=== PATIENT | male | born 1980 | race Caucasian/White ===

== ENCOUNTER 2017-05-28 20:36 | Emergency (ER) | payer BC, SELFPAY ==
[2017-05-28] VITALS (8 sets, daily range): BP systolic 128–135; BP diastolic 78–95; PULSE 85–107; RESP 10–28; TEMP 36.5; O2SAT 90–95; BMI 25.5
[2017-05-28] MEDS: Ipratropium/Albuterol Sulfate 3 ML AMPUL.NEB INHALATION ×2 (21:07→22:51)
[2017-05-28] MEDS: Albuterol 2.5 MG/3 ML VIAL.NEB. INHALATION ×3 (21:07→22:51)
--- NOTE | 2017-05-28 21:40 | RAD_ITS ---
STUDY: X-RAY CHEST REASON FOR EXAM: Male, 37 years old. Increased shortness of breath for several hours with history of asthma. TECHNIQUE: PA and lateral views of the chest. COMPARISON: None. FINDINGS: The lungs are clear and expanded. There is no demonstrated pleural abnormality. Normal size heart. Normal mediastinum and jean pierre. Normal visualized pulmonary arteries. Normal visualized aortic arch and descending thoracic aorta. Normal visualized thoracic spine. Normal visualized ribs, clavicles, and shoulders. There is no demonstrated abnormality of the visualized soft tissue structures of the upper abdomen. RAD/Chest PA and Lateral IMPRESSION: No evidence of focal airspace disease. Electronically Signed: Sung Rodrigues DO at 22:06 EDT , Service support ,
--- NOTE | 2017-05-28 22:42 | ED.DCSUM_ITS ---
- ER Visit Summary Date of Service: 05/28/17 Chief Complaint: Shortness of breath History of Present Illness: The patient is a 37 M with a history of asthma. Patient reports waking this morning with cold symptoms and has wheezing and shortness of breath worsened tonight. His albuterol MDI was not helping at home. He denies fever. He denies chest pain. He does not recall when he was last on oral steroids. Physical Examination: Vital signs are significant for respiratory rate of 28 and a pulse ox of 90% on room air on arrival. At the time of my exam his oxygen saturation is 95% on 2 L nasal cannula. Patient sitting upright in bed no acute distress. He speaking approximately 3- 4 word sentences. Head neck examination is unremarkable. Heart is regular rate and rhythm. Lung sounds are with tight inspiratory and expiratory wheezes throughout. Abdomen is soft nontender. Lower extremity examination was no calf tenderness or edema. Test Results: Two-view chest x-ray reveals no focal airspace disease. Emergency Department Course and Treatment: Patient was given a cycle of breathing treatments along with oral prednisone. On repeat evaluation he still has expiratory wheezes, but improved air movement throughout. He is able to speak full sentences and respiratory rate is now 10. His oxygen saturation is 93% on room air. Patient is given additional breathing treatments. After an additional DuoNeb treatment and albuterol, patient's lungs have significantly improved air movement. There is rare expiratory wheeze currently. Patient feels significantly improved over presentation. He will be given prednisone for home and will continue to use albuterol MDI. He is to return for worsening symptoms. Treatment Plan: [] Disposition: Discharge Impression: Viral URI with asthma exacerbation This note was generated with [employer] dictation software. It may contain incorrect words, spelling, and punctuation that were not noted in review of the chart prior to signing ED Disposition - Plan for ED Patient: Chief Complaint: Shortness of Breath Referrals: Jv Christopher MD [Primary Care Provider] -
--- NOTE | 2017-05-28 23:29 | ED.DEP ---
ED Disposition - Plan for ED Patient: Disposition: Home or Assisted Living Chief Complaint: Shortness of Breath Instructions: ED Reactive Airway Disease Prescriptions: Prednisone 10 mg PO UD #33 tablet Referrals: Jv Christopher MD [Primary Care Provider] - 3-5 Days if not improving
== END 2017-05-28 23:35 | disposition home or self-care (01) ==
PROVIDERS: Emergency Provider Emergency Medicine; Family Provider Family Medicine; PCP Family Medicine
DX: J45.901 Unspecified asthma with (acute) exacerbation (principal); J06.9 Acute upper respiratory infection, unspecified; Z87.891 Personal history of nicotine dependence; Z79.51 Long term (current) use of inhaled steroids; Z79.899 Other long term (current) drug therapy
CPT/HCPCS: 71046; 94640; 99283

== ENCOUNTER 2018-03-25 12:47 | Day surgery (SDC) | payer BC, SELFPAY ==
[2018-03-25] VITALS (9 sets, daily range): BP systolic 118–143; BP diastolic 79–102; PULSE 65–90; RESP 16–18; TEMP 36.2–37.5; O2SAT 92–97; BMI 27.6
--- NOTE | 2018-03-25 13:02 | EKG12_ITS ---
Test Reason : PRE-OP Blood Pressure : / mmHG Vent. Rate : 075 BPM Atrial Rate : 075 BPM P-R Int : 148 ms QRS Dur : 088 ms QT Int : 396 ms P-R-T Axes : 057 -09 020 degrees QTc Int : 442 ms Normal sinus rhythm Poor R wave progression Confirmed by WILLIAM MEJIA, ELIZABETH ([id number]), editor in chief newspaper LIZANDRO POLO ([id number] on 03/27/2018 11:16:26 AM Referred By: Jarek Quiroga Confirmed By:ELIZABETH THOMAS MD
[2018-03-25 13:45] LABS: Hematocrit 49.2 % (40-54); Hemoglobin 16.4 g/dl (13.0-16.5); Mean Corp Hgb Conc 33.3 g/gl (32-36); Mean Corpuscular Hgb 30.1 pg (27.0-32.0); Mean Corpuscular Volume 90.3 fL (80-94); Mean Platelet Vol. 9.8 fl (6.2-12.0); Platelet Count 371 K/mm3 (150-450); RBC Distribution Width CV 13.1 % (11.6-14.6); RBC Distribution Width SD 42.5 fl (35.1-43.9); Red Blood Count 5.45 M/mm3 (4.6-6.2); White Blood Count 14.5 K/mm3 (4.4-11.0)
[2018-03-25 13:47] LABS: Scan Indicated on CBC? Y/N NO
--- NOTE | 2018-03-25 14:25 | ETH_PTH ---
PATIENT: ANTHONY BYRD [place] [facility] [id number] AGE/SX: 38/M ROOM: RE03/25/[address]: Dr. Victor M Quiroga MD : [id number] BED: DIS: 03/25/2018 SPEC #: [id number] RECD: 03/26/18 07:45 STATUS: PRASANNA RERand #: [id number] ARI: 03/25/18 14:[address]: Victor M Quiroga DEPT: SURGICAL PATHOLOGY RECD BY: Danilo Larson ENTERED: 03/26/18 10:12 SP TYPE: ETH TISS OTHR DR: Dr. Jv Christopher MD Tissues: A - Ethmoid sinus, NOS B - Ethmoid sinus, NOS Procedures: PAS Fungus (control) Decalcification bone/plaque Special Stain Group I Surgery Specimen Level III HEADER OPERATION: Functional endoscopic sinus surgery with Navigation, septoplasty PRE-OP DIAGNOSIS: Chronic pansinusitis TISSUE SUBMITTED: A - Contents of left maxillary sinus, B - Contents of right maxillary sinus MICROSCOPIC DIAGNOSIS A. Left axillary sinus contents, excision: Consistent with chronic sinusitis. Fragments of benign sinonasal polyp. Fragments of bone with no pathologic change. Negative for fungal organisms. B. Right axillary sinus contents, excision: Consistent with chronic sinusitis. Fragments of benign sinonasal polyp. Fragments of bone with no pathologic change. Negative for fungal organisms. AM:marysol 03/31/18 COMMENT A & B. PAS stain with matched control supports the above diagnosis. MICROSCOPIC DESCRIPTION Slides are reviewed. GROSS DESCRIPTION A - Received in fixative is one container labeled with the patient's name and designated contents of left maxillary sinus. The specimen consists of multiple fragments of hemorrhagic frothy tissue mixed with fragments of bone that in aggregate measure 5 x 5 x 2 cm. Lawnmower Mechanic tissue is submitted in three cassettes after decalcification. B - Received in fixative is one container labeled with the patient's name and designated contents of right maxillary sinus. The specimen consists of multiple fragments of hemorrhagic frothy tissue mixed with fragments of bone that in aggregate measure 6 x 4 x 2 cm. Lawnmower Mechanic tissue is submitted in three cassettes after decalcification. / SHIMON:marysol 03/26/18 TC:3 CPT: 82972 x2, 60739 x2, 30979 x2
--- NOTE | 2018-03-25 15:03 | DCINST_ITS ---
You will use the following diet at home:: No restrictions Your food should be the consistency of: Regular Discharge Activity: May not drive while taking narcotic pain medications. Call your doctor if your incision/area has: Increased Pain/ Swelling Additional Dressing/Incision Instructions:: irrigate both nostrils 5-6 times / day with saline spray Allergies/Adverse Reactions: Allergies Sulfa (Sulfonamide Antibiotics) Allergy (Verified 03/24/18 10:26) Other sulfamethoxazole [From Septra] Allergy (Verified 03/25/18 13:10) Other trimethoprim [From Septra] Allergy (Verified 03/25/18 13:10) Other Medications to take at Discharge Fenofibrate [Lofibra] 160 mg PO DAILY 02/28/16 Albuterol Sulfate [Ventolin Hfa] 2 puff INHALATION 4X/DAY PRN PRN 05/28/17 Beclomethasone Diprop Inhaler [Qvar 80 Mcg Inhaler] 1 puff INHALATION BID 05/28/17 Citalopram [Celexa] 10 mg PO DAILY 05/28/17 Prednisone 10 mg PO UD #33 tablet 05/28/17 Lorazepam [Ativan] 0.5 mg PO DAILY PRN PRN 03/24/18 Ranitidine [Zantac] 150 mg PO QHS 03/24/18 MethylPREDNISolone DosePak [Medrol DosePak] 4 mg PO UD #1 box 03/25/18 Oxycodone HCl/Acetaminophen [Percocet 5/325] 1 tab PO Q6H PRN PRN 4 Days #15 tab 03/25/18 levoFLOXacin tablet [Levaquin tablet] 750 mg PO DAILY #7 tab 03/25/18 The following prescriptions were given: Oxycodone HCl/Acetaminophen [Percocet 5/325] 1 tab PO Q6H PRN PRN 4 Days #15 tab PRN Reason: Pain levoFLOXacin tablet [Levaquin tablet] 750 mg PO DAILY #7 tab MethylPREDNISolone DosePak [Medrol DosePak] 4 mg PO UD #1 box Primary Care Physician: Jv Christopher MD [Primary Care Provider] - Test Results: Test results from this visit will be discussed in further detail at your follow- up appointment, if applicable. Please Follow Up With: Jarek Quiroga MD When: 1 week
--- NOTE | 2018-03-25 15:04 | OP.PCM_ITS ---
Problem List (1) Chronic pansinusitis Status: Chronic Report of Operation Date of Procedure: 03/25/18 Pre-Operative Diagnosis: 1. chronic pansinusitis. 2. sinonasal polyposis. 3. nasal congestion. 4. nasal septal deviation. 5. nasal turbinate hypertrophy Post-Operative Diagnosis: 1. chronic pansinusitis. 2. sinonasal polyposis. 3. nasal congestion. 4. nasal septal deviation. 5. nasal turbinate hypertrophy Surgery/Procedure Performed:: 1. endoscopic maxillary antrostomy with removal of contents, right and left. 2. endoscopic total ethmoidectomy, right and left. 3. endoscopic frontal sinusotomy with removal of contents, right and left. 4. endoscopic sphenoidotomy with removal of contents, right and left. 5. endoscopic extensive polypectomy. 6. septoplasty. 7. submucous resection inferior turbinates Type of Anesthesia:: General Description of Procedure: on the day of the procedure after appropriate informed consent was obtained, the patient was brought to the operating room and placed in supine position on the operating table. he was placed under general endotracheal anesthesia by the anesthesiologist. the endotracheal tube was secured. the nasal septum and turbinates were injected with lidocaine/epinephrine. a marginal incision was made on the left with a #15 blade. submucoperichondrial planes were developed on the right and left with a santosh elevator posteriorly to the bony cartilaginous junction and inferiorly to the maxillary crest. an L- strut was preserved and a D knife was used to remove the remainder of the septum . deviated portions of the vomer were removed with a pricilla croft. the marginal incision was closed with 4-0 chromic and multiple quilting sutures were used to reapproximate the submucoperichondrial flaps. on the left, a 15 blade was used to make an incision in the head of the inferior turbinate. this was dissected submucosally with a santosh elevator, reduced using suction electrocautery and outfractured using a boies elevator. on the right, a 15 blade was used to make an incision in the head of the inferior turbinate. this was dissected submucosally with a santosh elevator, reduced u sing suction electrocautery and outfractured using a boies elevator. the bilateral nasal cavities were decongested with oxymetazoline-soaked pledgets. the superior attachment of the right and left middle turbinate was injected with lidocaine/epinephrine. on the left, a large amount of polyps were removed using the kailey microdebrider. an antrostomy/uncinectomy was performed using a combination of a santosh elevator and a blakesley. a back biter was used to widen the antrostomy. a large amount of fungus/pus was evacuated. the ethmoid bulla was entered bluntly with the suction and a total ethmoidectomy was performed with a curette and an upgoing blakesley. this was taken superiorly to the skull base and laterally to the lamina. numerous polyps were removed. a stankewicz maneuver was performed and no defect was seen. the natural sphenoid os was opened with the microdebrider and a large amount of pus was evacuated. the acclarent balloon sinuplasty system was advanced into the frontal recess and frontal transillumination was seen. the balloon was advanced and dilated. the area was irrigated and pledgets were replaced. hemostasis was achieved. on the right, a large amount of polyps were removed using the kailey microdebrider. an antrostomy/uncinectomy was performed using a combination of a santosh elevator and a blakesley. a back biter was used to widen the antrostomy. a large amount of fungus/pus was evacuated. the ethmoid bulla was entered bluntly with the suction and a total ethmoidectomy was performed with a curette and an upgoing blakesley. this was taken superiorly to the skull base and laterally to the lamina. numerous polyps were removed. a stankewicz maneuver was performed and no defect was seen. the natural sphenoid os was opened with the microdebrider and a large amount of pus was evacuated. the acclarent balloon sinuplasty system was advanced into the frontal recess and frontal transillumination was seen. the balloon was advanced and dilated. the area was irrigated and pledgets were replaced. hemostasis was achieved. propel stents were placed bilaterally and bocanegra splints were sutured into place. an orogastric tube was advanced and gastric/pharyngeal contents were evacuated. the patient was brought out of anesthesia, extubated and transferred to the pacu in stable condition.
[2018-03-25] MEDS: Oxymetazoline 0.05% 1 SPRAY SPRAY.BTL 15 SPRAY ×3 (15:30→16:49)
[2018-03-25] MEDS: Mupirocin Ointment 22gm Tube 1 APPLIC (16:54)
[2018-03-25] MEDS: HYDROcodone Bitartrate/Apap 5/325 Tablet PO (19:14)
== END 2018-03-25 19:42 | disposition home or self-care (01) ==
LOC: SDC 12:50 → AC 12:50
PROVIDERS: Anesthesiology; Family Provider Family Medicine; PCP Family Medicine; Referring Provider Otolaryngology; Visit Provider Otolaryngology
PROC: (CPT 30140; principal; 2018-03-25 14:10)
DX: J33.0 Polyp of nasal cavity (principal); J32.4 Chronic pansinusitis; K21.9 Gastro-esophageal reflux disease without esophagitis; E78.00 Pure hypercholesterolemia, unspecified; F41.9 Anxiety disorder, unspecified; F32.9 Major depressive disorder, single episode, unspecified; J45.909 Unspecified asthma, uncomplicated; G47.30 Sleep apnea, unspecified; Z87.891 Personal history of nicotine dependence; Z79.52 Long term (current) use of systemic steroids; Z79.51 Long term (current) use of inhaled steroids; Z79.899 Other long term (current) drug therapy
CPT/HCPCS: 30140; 30520; 31253; 31259; 31267; 36415; 85027; 88304; 88305; 88311; 88312; 93005; J7120; J2405

== ENCOUNTER → 2018-08-27 | Outpatient (CLI) | payer BC, SELFPAY ==
[2018-03-25 13:12] VITALS: BMI 27.6
== END | disposition home or self-care (01) ==
PROVIDERS: Family Provider Family Medicine; PCP Family Medicine; Referring Provider Otolaryngology; Visit Provider Otolaryngology
DX: J32.9 Chronic sinusitis, unspecified (principal)
CPT/HCPCS: 87070; 87077; 87186; 87205

== ENCOUNTER → 2018-09-25 | Outpatient (CLI) | payer BC, SELFPAY ==
[2018-03-25 13:12] VITALS: BMI 27.6
== END | disposition home or self-care (01) ==
LOC: LABSPEC 15:43
PROVIDERS: Family Provider Family Medicine; PCP Family Medicine; Referring Provider Otolaryngology; Visit Provider Otolaryngology
DX: J32.9 Chronic sinusitis, unspecified (principal)
CPT/HCPCS: 87070; 87077; 87186; 87205

== ENCOUNTER 2019-01-12 15:46 | Emergency (ER) | payer BC, SELFPAY ==
[2018-03-25 13:12] VITALS: BMI 27.6
[2019-01-12 15:47] VITALS: BP 161/89; PULSE 73; RESP 15; TEMP 36.6; O2SAT 96; BMI 27.2
--- NOTE | 2019-01-12 16:06 | ED.VISSUMM ---
- ER Visit Summary Date of Service: 01/12/19 Chief Complaint: [Back pain] History of Present Illness: The patient is a 38 M [presents to the emergency department with complaint of back pain that started yesterday morning when he woke up. Patient states that he was fine when he went to bed the night before. Patient states pains in his low back and at times will radiate into his right buttock. Pain seems to make it worse. Patient is tried Tylenol and ibuprofen at home without much relief. Patient's tried heat to the area. Patient has had some back pain in the past but never lasted this long. Patient denies any injury to his back. He denies any fever. He denies urinary symptoms. He does have a history of kidney stones but states this pain is completely different. Patient drove himself to the emergency department. Patient denies any radiation of pain into his legs. He denies any paresthesias. He denies weakness in extremities. He denies change in bowel or bladder function.] Physical Examination: [HEENT-PERRLA, EOMI. Cranial nerves II through XII grossly intact. TMs clear. Mucous membranes moist. No adenopathy. Cardiovascular-regular rate and rhythm without murmur or ectopy Lungs-clear to auscultation, chest wall stable without crepitus or subcu emphysema Abdomen-normoactive bowel sounds, soft, nontender, no rebound or rigidity, no peritoneal signs. Back exam-patient has no tenderness over the thoracic or lumbar spine. Patient has no real tenderness over the paraspinal musculature. Patient has negative straight leg raises. Deep tendon reflexes are plus 2 out of 4 bilaterally at the patella and Achilles. Patient has normal 5 extension bilaterally. Patient has normal sensation to light touch. Extremities-intact ?4, normal range of motion, normal pulses, atraumatic] Test Results: [None indicated] Emergency Department Course and Treatment: [] Treatment Plan: [Will be given a prescription for Flexeril, [place], and naproxen. Patient will be given a few days off work.] Disposition: [Discharged home in stable condition. Patient advised to follow-up with primary care physician within next 3 to 5 days.] Patient advised to return if worsening pain, fever, urinary symptoms, weakness in extremities, change in bowel or bladder function, or conditions worsen anyway. Impression: Lumbar back pain-strain versus radiculopathy] This note was generated with [employer] dictation software. It may contain incorrect words, spelling, and punctuation that were not noted in review of the chart prior to signing ED Disposition - Plan for ED Patient: Referrals: Jv Christopher MD [Primary Care Provider] -
--- NOTE | 2019-01-12 16:09 | DCINST.ED_ITS ---
ED Disposition - Plan for ED Patient: Instructions: BACK AND NECK PAIN, General Prescriptions: cycloBENZAPRine HCl [Flexeril] 10 mg PO TID PRN #20 tab PRN Reason: Muscle Spasm Prescription Printed Naproxen [Naprosyn] 500 mg PO BID PRN #20 tab Prescription Printed Hydrocodone Bitart/Apap 5-325 [[place] 5MG-325MG] 1 tab PO Q4H PRN PRN 2 Days #14 tab PRN Reason: Pain Prescription Printed Referrals: Jv Christopher MD [Primary Care Provider] - 3-5 Days
== END 2019-01-12 16:23 | disposition home or self-care (01) ==
LOC: ED 16:17
PROVIDERS: Emergency Provider Emergency Medicine; Family Provider Family Medicine; PCP Family Medicine
DX: S39.012A Strain of muscle, fascia and tendon of lower back, initial encounter (principal); Z87.442 Personal history of urinary calculi; X58.XXXA Exposure to other specified factors, initial encounter; Y93.84 Activity, sleeping; Y92.003 Bedroom of unspecified non-institutional (private) residence as the place of occurrence of the external cause; Y99.8 Other external cause status
CPT/HCPCS: 99281

== ENCOUNTER 2021-12-19 11:13 | Emergency (ER) | payer OTHER, SELFPAY ==
[2021-12-19 11:14] VITALS: BP 143/94; PULSE 68; RESP 16; TEMP 36.2; O2SAT 94; BMI 27.9
--- NOTE | 2021-12-19 11:18 | EKG12_ITS ---
Test Reason : CP Blood Pressure : / mmHG Vent. Rate : 069 BPM Atrial Rate : 069 BPM P-R Int : 152 ms QRS Dur : 084 ms QT Int : 414 ms P-R-T Axes : 058 -06 030 degrees QTc Int : 443 ms Normal sinus rhythm Normal ECG Confirmed by RADHA MEJIA, MAGI ([id number]), brands editor JOSE DC ([id number]) on 12/21/2021 7:57:31 AM Referred By: DUSTIN Confirmed By:MAGI GARCIA MD
--- NOTE | 2021-12-19 12:05 | RAD_ITS ---
STUDY: X-RAY CHEST REASON FOR EXAM: Male, 41 years old. Chest pain TECHNIQUE: Single AP portable view of the chest. COMPARISON: Comparison is made with prior study of 05/28/2017. FINDINGS: EKG electrodes are seen. Mild degree of increased linear markings at the lung bases slightly worse on the left side suggestive of a linear atelectasis. Blunting of the left costophrenic angle. Normal size heart. Normal mediastinum and jean pierre. Normal visualized pulmonary arteries. Normal visualized aortic arch and descending thoracic aorta. Normal visualized thoracic spine. Normal visualized ribs, clavicles, and shoulders. There is no demonstrated abnormality of the visualized soft tissue structures of the upper abdomen. RAD/Chest 1 View (Portable) IMPRESSION: Mild degree of increased markings at the lung bases worse on the left side suggestive of bibasilar atelectasis. Blunting of the left costophrenic angle. Electronically Signed: Jeffry Moran MD at 12:44 EDT ,
[2021-12-19 12:16] VITALS: BP 133/91; RESP 14; O2SAT 96
[2021-12-19 12:16] LABS: Absolute Lymphocyte Count 2.29 X10^3/uL (0.83-4.51); Basophil# 0.14 X10^3/uL; Basophil% 1.4 % (0-1); Eosinophil# 1.54 X10^3/uL; Eosinophils% 15.5 % (0-5); Hematocrit 43.3 % (40-54); Hemoglobin 14.7 g/dL (13.0-16.5); Lymphocyte # 2.29 X10^3/ul (0.83-4.51); Lymphocyte % 23.1 % (19-41); Mean Corp Hgb Conc 33.9 g/dL (32-36); Mean Corpuscular Hgb 29.9 pg (27.0-32.0); Mean Platelet Vol. 10.1 fl (6.2-12.0); Monocyte# 0.72 X10^3/uL; Monocyte% 7.3 % (0-10); NRBC Flagged by Analyzer 0 % (0-5); Neutrophil # 4.99 X10^3/uL (2.7-7.7); Neutrophil % 50.4 % (47-70); Platelet Count 324 K/mm3 (150-450); RBC Distribution Width CV 13.3 % (11.6-14.6); RBC Distribution Width SD 42.9 fl (35.1-43.9); Red Blood Count 4.92 M/mm3 (4.6-6.2); White Blood Count 9.9 K/mm3 (4.4-11.0)
[2021-12-19 12:33] LABS: Anion Gap 8 (5-15); BUN 10 mg/dL (7-18); BUN/Creat Ratio 13.5 RATIO (10-20); Calcium,Total 8.9 mg/dL (8.5-10.1); Chloride 107 mmol/L (98-107); Creatinine, Serum 0.74 mg/dL (0.70-1.30); EST Glomerular Filtration Rate 123 mL/min (>60); Est Glom Filt Rate - Afr Amer 149 mL/min (>60); Estimated Creatinine Clearance 127.09 ml/min; Glucose 108 mg/dL (74-106); Potassium 3.5 mmol/L (3.5-5.1); Sodium Level 139 mmol/L (136-145); Troponin-I HS 4 pg/mL (3.0-78.0)
[2021-12-19 13:18] VITALS: BP 127/84; PULSE 68; RESP 14; O2SAT 96
--- NOTE | 2021-12-19 14:05 | EDS_ITS ---
HPI History of Present Illness Chief Complaint: Chest Pain Informant: patient Narrative Narrative: 41-year-old male presenting to the emergency department with chest pain. Patient states that he woke this morning with pain in his mid chest described as an ache. It has been constant over the past 6+ hours. He denies associated nausea or vomiting or shortness of breath. He states he has never had this before. No increase in belching or gas. He states he is normally a very healthy person. He does note a history of asthma and GERD. [facility] Medical History (Updated 12/19/21 @ 14:[address] Anand Man, DO) Asthma GERD (gastroesophageal reflux disease) Home Medications fenofibrate 160 mg tablet (Lofibra) 160 mg PO DAILY 02/28/16 [History Last Taken Unknown] Beclomethasone Diprop Inhaler [Qvar 80 Mcg Inhaler] 1 puff inhalation BID 05/28/17 [History Last Taken 03/25/18 12:45] albuterol sulfate 90 mcg/actuation aerosol inhaler (Ventolin HFA) 2 puff inhalation 4X/DAY PRN PRN Shortness Of Breath 05/28/17 [History Last Taken Unknown] citalopram 10 mg tablet 10 mg PO DAILY 05/28/17 [History Last Taken Unknown] prednisone 10 mg tablet 10 mg PO UD ##33 05/28/17 [Rx Last Taken Unknown] Ranitidine [Zantac] 150 mg PO QHS 03/24/18 [History Last Taken Unknown] lorazepam 0.5 mg tablet 0.5 mg PO DAILY PRN PRN Anxiety 03/24/18 [History Last Taken 03/25/18 12:45] levofloxacin 750 mg tablet 750 mg PO DAILY #7 tabs 03/25/18 [Rx Last Taken Unknown] methylprednisolone 4 mg tablets in a dose pack 4 mg PO UD ##1 03/25/18 [Rx Last Taken Unknown] cyclobenzaprine 10 mg tablet 10 mg PO TID PRN Muscle Spasm #20 tabs 01/12/19 [Rx Last Taken Unknown] naproxen 500 mg tablet 500 mg PO BID PRN #20 tabs 01/12/19 [Rx Last Taken Unknown] Allergy/AdvReac Type Severity Reaction Status Date / Time Sulfa (Sulfonamide Allergy Other Verified 12/19/21 11:14 Antibiotics) sulfamethoxazole Allergy Other Verified 12/19/21 11:14 [From ] trimethoprim [From Novra] Allergy Other Verified 12/19/21 11:14 Social History (Updated 12/19/21 @ 14:[address] Anand Man, DO) Smoking Status: Former smoker substance use type: does not use EXAM Physical Exam Const Vital Signs: 12/19/21 11:14 12/19/21 12:04 12/19/21 12:04 Temperature 97.1 F L Temperature Source Temporal Pulse Rate 68 Respiratory Rate 16 Respiratory Effort Normal Non-Labored Blood Pressure 143/94 H Blood Pressure Mean 110 Pulse Ox 94 Oxygen Delivery Method Room Air Room Air 12/19/21 12:16 12/19/21 13:18 Temperature Temperature Source Pulse Rate 68 Respiratory Rate 14 14 Respiratory Effort Blood Pressure 133/91 H 127/84 H Blood Pressure Mean 105 98 Pulse Ox 96 96 Oxygen Delivery Method Room Air Room Air Positive well nourished and well developed General Appearance ED: well developed HEENT Reports normocephalic, head/scalp atraumatic and moist mucous membranes Eyes PERRL and EOMs intact bilaterally Neck no lymphadenopathy, supple and no JVD Resp normal respiratory effort and clear to auscultation bilaterally Cardio regular rate, regular rhythm and no murmurs GI normal to inspection, nondistended, normoactive bowel sounds and non-tender Palpation: soft Back/Spine no CVA tenderness and normal ROM Extremity normal to inspection General Extremety ED: Negative for edema General Extremity: Negative for edema Neuro oriented x3 and CN's II-XII intact bilaterally Sensorium / Orientation: alert Motor Exam: strength 5/5 throughout Psych mental status grossly normal Mood & Affect: Negative for depressed or tearful Skin no rashes or lesions noted and no wounds MDM MDM MDM Narrative Medical decision making narrative: Patient has remained in a normal sinus rhythm. CBC BMP and troponin are negative. My interpretation of the chest x-ray is negative. At this point I think the patient can be discharged home. His troponin is greater than 6 hours with no elevation of his cardiac enzymes. I do not think this is pulmonary embolism. Patient to return if worsening or concerns Lab Data Attestation: I reviewed the patient's lab results. Labs: Laboratory Results - last 24 hr 12/19/21 12/19/21 12:00 12:00 WBC 9.9 RBC 4.92 Hgb 14.7 Hct 43.3 MCV 88.0 MCH 29.9 MCHC 33.9 RDW Std Deviation 42.9 RDW Coeff of Ernestina 13.3 Plt Count 324 MPV 10.1 Immature Gran % (Auto) 2.300 H Neut % (Auto) 50.4 Lymph % (Auto) 23.1 Irion % (Auto) 7.3 Eos % (Auto) 15.5 H Baso % (Auto) 1.4 H Absolute Neuts (auto) 5.0 Absolute Lymphs (auto) 2.29 Nucleated RBC % 0 Sodium 139 Potassium 3.5 Chloride 107 Carbon Dioxide 24.0 Anion Gap 8 BUN 10 Creatinine 0.74 Estim Creat Clear Calc 127.09 Est GFR (MDRD) Af Amer 149 Est GFR (MDRD) Non-Af 123 BUN/Creatinine Ratio 13.5 Glucose 108 H Calcium 8.9 Troponin I High Sens 4 Radiography Diagnostic Testing: Clinical Impression(s) from Imaging Studies Chest X-Ray 12/19/21 12:05 IMPRESSION: Mild degree of increased markings at the lung bases worse on the left side suggestive of bibasilar atelectasis. Blunting of the left costophrenic angle. Electronically Signed: Jeffry Moran MD at 12:44 EDT , EKG Initial EKG: Attestation: I personally reviewed and interpreted this EKG as follows: Comments: Normal sinus rhythm with a ventricular rate of 69 bpm. Discharge Plan Triage Chief Complaint: Chest Pain ED Provider: Anand Man Dx/Rx/DC Orders Clinical Impression: Chest pain Instructions: ED Chest Pain, Uncertain Cause Prescriptions: No Action fenofibrate [Lofibra] 160 MG tablet 160 mg PO DAILY citalopram 10 MG tablet 10 mg PO DAILY Label Comments: TAKE 1 TABLET BY MOUTH EVERY DAY albuterol sulfate [Ventolin HFA] 18 GM Hfa.Aer.Ad 2 puff inhalation 4X/DAY PRN PRN (Reason: Shortness Of Breath) Label Comments: Inhale 2 Puffs as instructed every 4 hours as needed for Wheezing/Shortness of Breath. Beclomethasone Diprop Inhaler [Qvar 80 Mcg Inhaler] 1 PUFF inhaler 1 puff inhalation BID prednisone 10 MG tablet 10 mg PO UD Qty: 33 0RF Rx Instructions: Take 4 tablets daily for 3 days, then 3 daily for 3 days, then 2 daily for 3 days, then 1 a day for 3 days then 1 QOD for 3 doses. lorazepam 0.5 MG tablet 0.5 mg PO DAILY PRN PRN (Reason: Anxiety) Ranitidine [Zantac] 150 MG tablet 150 mg PO QHS levofloxacin 750 MG tablet 750 mg PO DAILY Qty: 7 0RF methylprednisolone 4 MG tablet 4 mg PO UD Qty: 1 0RF cyclobenzaprine 10 MG tablet 10 mg PO TID PRN (Reason: Muscle Spasm) Qty: 20 0RF naproxen 500 MG tablet 500 mg PO BID PRN Qty: 20 0RF Primary Care Provider: Jv Christopher Referrals: Jv Christopher MD [Primary Care Provider] - As Needed Disposition Disposition: Home, Self Care
[2021-12-19 14:29] VITALS: BP 128/84; PULSE 71; RESP 18; O2SAT 98
== END 2021-12-19 14:30 | disposition home or self-care (01) ==
PROVIDERS: Emergency Provider Emergency Medicine; PCP Family Medicine; Visit Provider Emergency Medicine
DX: R07.9 Chest pain, unspecified (principal); J45.909 Unspecified asthma, uncomplicated; Z87.891 Personal history of nicotine dependence
CPT/HCPCS: 71045; 80048; 84484; 85025; 93005; 99284; A4216

== ENCOUNTER 2023-11-20 13:41 | Emergency (ER) | payer OTHER, SELFPAY ==
[2023-11-20 13:43] VITALS: BP 118/93; PULSE 89; RESP 16; TEMP 36.6; O2SAT 98; BMI 28.3
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
[2023-11-20 15:19] VITALS: BP 118/93; PULSE 80; RESP 16; TEMP 36.6; O2SAT 98
== END 2023-11-20 15:22 | disposition home or self-care (01) ==
PROVIDERS: Emergency Provider Emergency Medicine; PCP Family Medicine; Visit Provider Emergency Medicine
DX: S39.012A Strain of muscle, fascia and tendon of lower back, initial encounter (principal); Z87.891 Personal history of nicotine dependence; K21.9 Gastro-esophageal reflux disease without esophagitis; J45.909 Unspecified asthma, uncomplicated; V43.62XA Car passenger injured in collision with other type car in traffic accident, initial encounter
CPT/HCPCS: 72100; 99282

== ENCOUNTER 2023-12-23 16:14 | Emergency (ER) | payer OTHER, SELFPAY ==
[2023-12-23 16:15] VITALS: BP 152/96; PULSE 68; RESP 18; TEMP 37; O2SAT 98; BMI 27.2
[2023-12-23 17:45] VITALS: BP 146/99; PULSE 63; RESP 16; O2SAT 97
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
[2023-12-23 18:29] VITALS: BP 140/79; PULSE 72; RESP 18; TEMP 36.6; O2SAT 100
== END 2023-12-23 18:30 | disposition home or self-care (01) ==
PROVIDERS: Emergency Provider Emergency Medicine; PCP Family Medicine; Visit Provider Emergency Medicine
DX: S92.412A Displaced fracture of proximal phalanx of left great toe, initial encounter for closed fracture (principal); S40.012A Contusion of left shoulder, initial encounter; S06.0X1A Concussion with loss of consciousness of 30 minutes or less, initial encounter; V00.141A Fall from scooter (nonmotorized), initial encounter; R40.2412 Glasgow coma scale score 13-15, at arrival to emergency department; J32.4 Chronic pansinusitis; K21.9 Gastro-esophageal reflux disease without esophagitis; J45.909 Unspecified asthma, uncomplicated; Z88.2 Allergy status to sulfonamides; Z88.1 Allergy status to other antibiotic agents; Z87.891 Personal history of nicotine dependence
CPT/HCPCS: 73030; 73630; 99283

== ENCOUNTER → 2024-04-24 | Outpatient (CLI) | payer OTHER, SELFPAY ==
--- NOTE | 2024-04-24 16:59 | CT_ITS ---
PROCEDURE: SINUS/FACIAL BONE REASON FOR EXAM: Congestion. History of prior polypectomy. TECHNIQUE: CT of the paranasal sinuses without contrast. COMPARISON: None. FINDINGS: Frontal: Opacification of the frontal sinuses. Ethmoid: Opacification of the ethmoid sinuses bilaterally with evidence of bony erosion suggestive of possible chronic component. Sphenoid: Partial opacification with air-fluid level in the sphenoid sinus. Maxillary: There is opacification of the left maxillary sinus. Partial opacification of the right maxillary sinus. There has been prior resection of the medial wall of the right and left maxillary sinuses. Turbinates: Hypertrophy of both inferior turbinates. Nasal Septum: Midline. No large nasal septal spur. Mastoids/Middle Ears: Clear at visualized levels. Visualized intracranial structures are unremarkable. CT/Sinus/Facial Bone IMPRESSION: Pansinusitis. One or more dose reduction techniques were used (e.g., Automated exposure contr ol, adjustment of the mA and/or kV according to patient size, use of iterative reconstruction technique). Reading Location: [id number]
== END | disposition home or self-care (01) ==
PROVIDERS: PCP Family Medicine; Referring Provider Otolaryngology; Visit Provider Otolaryngology
DX: J32.9 Chronic sinusitis, unspecified (principal)
CPT/HCPCS: 70486

== ENCOUNTER 2024-06-23 05:49 | Day surgery (SDC) | payer OTHER, SELFPAY ==
--- NOTE | 2024-06-18 13:42 | EKG12_ITS ---
Test Reason : PREOP Blood Pressure : */* mmHG Vent. Rate : 78 BPM Atrial Rate : 78 BPM P-R Int : 144 ms QRS Dur : 84 ms QT Int : 386 ms P-R-T Axes : 77 28 58 degrees QTcB Int : 440 ms Normal sinus rhythm Normal ECG Confirmed by RADHA MEJIA, MAGI ([id number]), proposal editor RUBINA AVILES ([id number]) on 06/19/2024 9:32:41 AM Referred By: Victor M Quiroga Confirmed By: MAGI GARCIA MD
[2024-06-18 15:12] LABS: Hematocrit 45.6 % (40-54); Hemoglobin 15.9 g/dL (13.0-16.5); Mean Corp Hgb Conc 34.9 g/dL (32-36); Mean Corpuscular Hgb 29.7 pg (27.0-32.0); Mean Corpuscular Volume 85.1 fL (80-94); Mean Platelet Vol. 10.2 fl (6.2-12.0); Platelet Count 339 K/mm3 (150-450); RBC Distribution Width CV 12.9 % (11.6-14.6); Red Blood Count 5.36 M/mm3 (4.6-6.2); White Blood Count 10.1 K/mm3 (4.4-11.0)
[2024-06-18 16:23] LABS: Hemoglobin A1c 5.9 % (<=5.6)
[2024-06-18 16:25] LABS: Anion Gap 13 (5-15); BUN 14 mg/dL (4-19); BUN/Creat Ratio 19.7 RATIO (10-20); Calcium,Total 9.5 mg/dL (7.6-11.0); Carbon Dioxide 21.7 mmol/L (21.0-32.0); Chloride 103 mmol/L (98-108); Creatinine, Serum 0.73 mg/dL (0.70-1.20); EST Glomerular Filtration Rate 115 (>60); Glucose 93 mg/dL (70-99); Potassium 4.1 mmol/L (3.3-5.1); Sodium Level 137 mmol/L (133-145)
[2024-06-23] VITALS (12 sets, daily range): BP systolic 129–137; BP diastolic 81–89; PULSE 64–79; RESP 16; TEMP 36.2–36.6; O2SAT 91–97; BMI 27.1
[2024-06-23] MEDS: 0.9% Normal Saline (1000mL) 1,000 ML 15 ML IV (06:28)
[2024-06-23 06:59] LABS: Bedside Glucose 157 mg/dL (74-106)
--- NOTE | 2024-06-23 07:04 | PRE.ANES_ITS ---
ASA Classification* ASA Classification ASA Classification: 2 Assessment & Plan Anesthesia* Anesthesia Assessment Anesthesia Assessment: Discussed sedation and/or anesthesia options, risks, benefits, and alternatives with patient/parents/legal guardian/POA. Questions invited. The patient/parents/legal guardian/POA seems to understand and agrees to proceed with anesthesia plan. Reviewed the physical assessment, medical history, allergy history and patient home medications list prior to surgery/procedure/anesthetic and documented any changes. Performed airway and anesthesia risk assessments. Anesthesia Type Anesthesia Type: General (Patient has a history of nausea vomiting. Will apply a scopolamine patch.) History Source History Obtained from:: Patient and Chart Anesthesia Focused Assessment* Temperature: 97.4 F Pulse Rate: 73 Blood Pressure: 132/86 Respiratory Rate: 16 Pulse Ox: 95 Oxygen Delivery Method: Room Air Airway Assessment Mouth opens: >3 cm Mallampati Score: IV Teeth Condition: Intact Neck Range of motion (ROM): Limited ROM (Slight decrease in extension) Focused Labs Anesthesia Preop lab: CBC WBC 10.1 K/mm3 (4.4-11.0) 06/18/24 13:54 06/18/24 RBC 5.36 M/mm3 (4.6-6.2) 06/18/24 13:54 06/18/24 Hgb 15.9 g/dL (13.0-16.5) 06/18/24 13:54 06/18/24 Hct 45.6 % (40-54) 06/18/24 13:54 06/18/24 Plt Count 339 K/mm3 (150-450) 06/18/24 13:54 06/18/24 CHEMISTRY Potassium 4.1 mmol/L (3.3-5.1) 06/18/24 13:54 06/18/24 Sodium 137 mmol/L (133-145) 06/18/24 13:54 06/18/24 BUN 14 mg/dL (4-19) 06/18/24 13:54 06/18/24 Creatinine 0.73 mg/dL (0.70-1.20) 06/18/24 13:54 06/18/24 Glucose 93 mg/dL (70-99) 06/18/24 13:54 06/18/24 POC Glucose 157 mg/dL (74-106) H 06/23/24 06:20 06/23/24 COAG Pre-Assessment Diagnosis/Proposed Procedure Planned Operative Procedure(s): FESS REVISION Anesthesia History 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 When Was Last Pacemaker Check QUESTION #4 FULL TEXT: You/Your Family Experience fever (hyperthermia) with Anesthesia Last Oral Intake Last Oral intake: Last Oral Intake NPO since 23:00 06/23/24 06:24 Meds taken in AM with sips of No 06/23/24 06:24 water? 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 reeling machine operator Female No 06/17/24 15:38 HX of Motion Sickness Yes 06/17/24 15:38 HX of N/V After Surgery No 06/17/24 15:38 Non-Smoker Yes 06/17/24 15:38 Duration of Surgery greater Yes 06/17/24 15:38 than 60 minutes Number of Risk Factors 3 06/17/24 15:38 PONV Score Moderate Risk 06/17/24 15:38 Height & Weight Height & Weight: Anesthesia: Height & Weight Height 5 ft 8 in 06/23/24 06:24 Weight: 81 kg 06/23/24 06:24 Body Mass Index (BMI) 27.1 06/23/24 06:24 Respiratory Assessment Respiratory Assessment - twine reeling machine operator: Respiratory Tract Infection Hx - 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 Has anyone observed you stop breathing during sleep? STOP Results Positive 06/17/24 15:38 QUESTION #5 FULL TEXT : Do you snore loudly (louder than talking or can be heard through closed doors)? 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 Specify any problems Hx of Preganancy in last 3 N/A 06/17/24 15:38 Months Nurse Filling Out Transfusion DSCHRIBER 06/17/24 15:38 & Questions: Date: 06/17/24 06/17/24 15:38 Time: 15:39 06/17/24 15:38 Patient unable to answer at this time (ie. confused, unrespo /Reproduction History /Reproductive History - twine reeling machine operator: /Reproductive Hx- twine reeling machine operator Hx Now No 06/17/24 15:38 Gestational Age (in weeks): EDC: Hx Hx Para Hx Section SAB No 06/17/24 15:38 Active Medications Active Medications: Current Medications Generic Name Dose Route Start Last Admin Trade Name Freq PRN Reason Stop Dose Admin Clindamycin Phosphate 900 mg in 50 mls @ 75 mls/hr 06/23/24 07:30 Cleocin IV 06/23/24 08:09 PREOP ONE Sodium Chloride 1,000 mls @ 15 mls/hr 06/23/24 06:00 06/23/24 06:28 IV 15 mls/hr .Q48H KATIUSKA Administration PFS Medical History Wears glasses Marijuana use History of steroid therapy Diabetes Arthritis Fatty liver High cholesterol Back pain Former smoker Shortness of breath on exertion History of pain when walking Asthma Home Medications ?Medication ?Instructions ?Recorded ?Last Taken ?Type albuterol sulfate 90 mcg/actuation 2 puff inhalation 4 X/DAY PRN PRN 05/28/17 Unknown History aerosol inhaler (Ventolin HFA) Shortness Of Breath fluticasone 500 mcg-salmeterol 50 1 ea inhalation BID 06/17/24 06/22/24 History mcg/dose blistr powdr for inhalation Allergy/AdvReac Type Severity Reaction Status Date / Time Sulfa (Sulfonamide Allergy Other Verified 06/17/24 15:36 Antibiotics) sulfamethoxazole (From Allergy Other Verified 06/17/24 15:36 Septra) trimethoprim (From Septra) Allergy Other Verified 06/17/24 15:36 Surgical History Hx of sinus surgery Hx of vasectomy Social History household members: spouse housing: house current occupational status: employed Smoking Status: Former smoker substance use type: does not use Review of Systems (Anesthesia) ROS Narrative System reviewed and no additional complaints, except as documented. Physical Exam Resp Resp Narrative: Patient has a very slight wheeze at the end of expiration. I will give him a DuoNeb breathing treatment preop.
[2024-06-23] MEDS: Ipratropium/Albuterol Sulfate 3 ML AMPUL.NEB INHALATION (07:15)
--- NOTE | 2024-06-23 07:30 | ETH_PTH ---
PATIENT: ANTHONY BYRD LOC: [facility] – [place] U#:[id number] AGE/SX: 44/M ROOM: RE06/23/[address]: Dr. Victor M Quiroga MD : 1980 BED: DIS: 06/23/2024 SPEC #: [id number] RECD: 06/23/24 11:08 STATUS: PRASANNA MCGUIRE #: [id number] ARI: 06/23/24 07:[address]: Victor M Quiroga DEPT: SURGICAL PATHOLOGY RECD BY: Edson Floyd ENTERED: 06/23/24 11:08 SP TYPE: ETH TISS OTHR DR: Dr. Jv Christopher MD Tissues: A - Ethmoid sinus, NOS B - Ethmoid sinus, NOS Procedures: Surgery Specimen Level IV HEADER OPERATION: Functional endoscopic sinus surgery, revision, navigation PRE-OP DIAGNOSIS: Chronic pansinusitis, sinonasal polyposis TISSUE SUBMITTED: A- Left sinus contents, B- Right sinus contents MICROSCOPIC DIAGNOSIS A. Left sinus, content, endoscopic excision: * Polypoid fragments of edematous and inflamed sinonasal mucosa with marked eosinophilia, consistent with inflammatory polyp(s). B. Right sinus, content, endoscopic excision: * Polypoid fragments of edematous and inflamed sinonasal mucosa with marked eosinophilia, consistent with inflammatory polyp(s). MICROSCOPIC DESCRIPTION Slides are reviewed. GROSS DESCRIPTION A. Received in formalin in a container labeled with the patient's name, date of , and left sinus content are multiple parr-pink fragments of soft tissue measuring 2.7 x 1.8 x 0.3 cm in aggregate. Submitted in toto in A1. B. Received in formalin in a container labeled with the patient's name, date of , and right sinus contents are multiple parr-pink fragments of soft tissue measuring 2.8 x 1.5 x 0.3 cm in aggregate. Submitted in toto in B1. [facility] 06-23-2024 CPT:87163g9
--- NOTE | 2024-06-23 07:36 | PCM.DC ---
Discharge Instructions Diet Discharge Diet: No restrictions DC O2, CPAP, BIPAP needs Home O2 Discharge instructions: No Dressing / Incision Discharge Activity: Return to Normal Activity Dressing / Incision Call your doctor if your incision/area has: Sudden Increased Bleeding Additional Dressing/Incision Instructions:: saline to nose 5-6 times daily Follow Up Care Please Follow Up With: Victor M Quiroga MD Test Results: Test results from this visit will be discussed in further detail at your follow-up appointment, if applicable. Discharge Plan Admission Attending Provider: Victor M Quiroga Primary Care Provider: Jv Christopher Instructions Print Language: Japanese Discharge Orders/Prescriptions Prescriptions: No Action albuterol sulfate [Ventolin HFA] 18 GM HFA aerosol inhaler 2 puff inhalation 4X/DAY PRN PRN (Reason: Shortness Of Breath) Patient Comments: Inhale 2 Puffs as instructed every 4 hours as needed for Wheezing/Shortness of Breath. fluticasone propion-salmeterol 500-50 mcg/dose blister with device 1 ea INHALATION BID Referrals / Follow Up: Jv Christopher MD [Primary Care Provider] - Disposition Disposition (needs filled in before D/C Order can be placed): Home, Self Care
[2024-06-23] MEDS: Clindamycin 900 MG/50 ML BAG 75 MG IV (07:37)
--- NOTE | 2024-06-23 07:37 | PCM.OPRPT ---
Problems Associated Problem List Diagnoses (1) Chronic pansinusitis: Operative Report (Standard) Operative Information Date of Procedure: 06/23/24 Pre-Operative Diagnosis: 1. chronic pansinusitis 2. sinonasal polyposis Post-Operative Diagnosis: 1. chronic pansinusitis 2. sinonasal polyposis Surgery/Procedure Performed: 1. endoscopic maxillary antrostomy with removal of contents, right and left 2. endoscopic total ethmoidectomy, right and left 3. endoscopic frontal sinusotomy with removal of contents, right and left 4. endoscopic sphenoidotomy with removal of contents, right and left 5. image guidance CT navigation customer care voice consultant: No Type of Anesthesia: General RN Documented Start/Stop Times: Operation Date: 06/23/24 07:30 Case Time Into Pre-Op 06/23/24 05:58 Out of Pre-Op 06/23/24 07:30 Procedure Start Time: 07:45 Procedure Stop Time: 09:26 Select all DRAINS/GRAFTS/IMPLANTS that apply: None Estimated Blood Loss: 5cc Specimen collected: Yes Description of specimen(s) removed: sinus contents, right and left Description of surgery: on the day of the procedure, after appropriate informed consent was obtained, the patient was brought to the operating room and placed in supine position on the operating table. he was placed under general endotracheal anesthesia by the anesthesiologist. the endotracheal tube was secured, the eyes were taped. the image-guidance was set up and confirmed. the bilateral nasal cavities were decongested with oxymetazoline-soaked pledgets. bilateral polyps were injected with lidocaine/epinephrine. the left nostril was evaluated using the zero degree endoscope. extensive polyps were removed from the middle meatus, sphenoethmoidal recess and frontal recess. a revision maxillary antrostomy was performed with the microdebrider. polyps were removed with an upgoing blakesley. a revision total ethmoidectomy was performed using the microdebrider, j curette and upgoing blakesley. extensive polyps were removed. a stankewicz maneuver was perfomed and no laminar defect was noted. the existing sphenoidotomy was widened and fungus was removed with the suction. the frontal sinus was probed and polyps were removed. hemostasis was achieved with suction cautery, surgicel and hemoblast. the left nostril was evaluated using the zero degree endoscope. extensive polyps were removed from the middle meatus, sphenoethmoidal recess and frontal recess. a revision maxillary antrostomy was performed with the microdebrider. polyps were removed with an upgoing blakesley. a revision total ethmoidectomy was performed using the microdebrider, j curette and upgoing blakesley. extensive polyps were removed. a stankewicz maneuver was perfomed and no laminar defect was noted. the existing sphenoidotomy was widened and fungus was removed with the suction. the frontal sinus was probed and polyps were removed. hemostasis was achieved with suction cautery, surgicel and hemoblast. the patient was awoken from anesthesia and transferred to the PACU in stable condition. Surgical Findings: n/a Complications Complications: No
[2024-06-23] MEDS: Oxymetazoline 0.05% 1 SPRAY SPRAY.BTL 15 SPRAY (08:11)
--- NOTE | 2024-06-23 08:50 | PCM.POST.ANE ---
Anesthesia: Postop Eval I Current Vital Signs Temperature: 97.2 F Pulse Rate: 76 Blood Pressure: 133/87 Respiratory Rate: 16 Pulse Ox: 95 Oxygen Delivery Method: Room Air Assessment Airway patent: Yes Spontaneous unlabored respirations: Yes Mental status: Awake and Calm nausea: No Vomiting: No Anesthesia Complication: No Fluid Hydration Crystalloid volume administer (ml): 800 Total IV fluid infused: 800 Progress Note Anesthesia document: Postop Eval 1 completed: Yes
[2024-06-23] MEDS: Lidocaine 1% /Epi 1:100 (20ml) 20 ML Vial (08:52)
[2024-06-23] MEDS: HYDROcodone Bitartrate/Apap 5/325 Tablet PO (10:08)
--- NOTE | 2024-06-23 12:34 | POSTOPAN2_ITS ---
Anesthesia Postop Eval I Sum Postop Eval Completion status Anesthesia document: Postop Eval 1 completed: Yes Anesthesia Postop Eval I Summary Anesthesia Postop Eval I Summary: Anesthesia Postop Eval I: Assessment Summary Airway patent Yes 06/23/24 08:51 ELEVATOR BUILDER.[email or web address] Spontaneous unlabored Yes 06/23/24 08:51 ELEVATOR BUILDER.GDOTT respirations Mental status Awake,Calm 06/23/24 08:51 ELEVATOR BUILDER.GDOTT nausea No 06/23/24 08:51 ELEVATOR BUILDER.GDOTT Vomiting No 06/23/24 08:51 ELEVATOR BUILDER.GDOTT Anesthesia Postop Eval I: Fluid Summary Crystalloid volume administer 800 06/23/24 08:51 ELEVATOR BUILDER.GDOTT (ml) Colloids volume administered ( ml) Blood Product volume administered (ml) Total IV fluid infused 800 06/23/24 08:51 ELEVATOR BUILDER.GDOTT Anesthesia Postop Eval I: Summary Notes Anesthesia Complication No 06/23/24 08:51 ELEVATOR BUILDER.GDOTT Anesthesia Complication Comment: Post-operative progress note Anesthesia: Postop Eval II Evaluation Mental status: Awake and Calm Pain Level: 2 nausea: No Vomiting: No Complications Anesthesia Complication: No
--- NOTE | 2024-06-23 12:34 | PCM.POSTANE2 ---
Anesthesia Postop Eval I Sum Postop Eval Completion status Anesthesia document: Postop Eval 1 completed: Yes Anesthesia Postop Eval I Summary Anesthesia Postop Eval I Summary: Anesthesia Postop Eval I: Assessment Summary Airway patent Yes 06/23/24 08:51 DEPARTMENT SALES MANAGER.[email or web address] Spontaneous unlabored Yes 06/23/24 08:51 DEPARTMENT SALES MANAGER.GDOTT respirations Mental status Awake,Calm 06/23/24 08:51 DEPARTMENT SALES MANAGER.GDOTT nausea No 06/23/24 08:51 DEPARTMENT SALES MANAGER.GDOTT Vomiting No 06/23/24 08:51 DEPARTMENT SALES MANAGER.GDOTT Anesthesia Postop Eval I: Fluid Summary Crystalloid volume administer 800 06/23/24 08:51 DEPARTMENT SALES MANAGER.GDOTT (ml) Colloids volume administered ( ml) Blood Product volume administered (ml) Total IV fluid infused 800 06/23/24 08:51 DEPARTMENT SALES MANAGER.GDOTT Anesthesia Postop Eval I: Summary Notes Anesthesia Complication No 06/23/24 08:51 DEPARTMENT SALES MANAGER.GDOTT Anesthesia Complication Comment: Post-operative progress note Anesthesia: Postop Eval II Evaluation Mental status: Awake and Calm Pain Level: 2 nausea: No Vomiting: No Complications Anesthesia Complication: No
== END 2024-06-23 10:32 | disposition home or self-care (01) ==
LOC: SDC 05:50 → AC 05:52
PROVIDERS: Anesthesiology; PCP Family Medicine; Referring Provider Otolaryngology; Visit Provider Otolaryngology
PROC: (CPT 31259; principal; 2024-06-23 07:00)
DX: J32.4 Chronic pansinusitis (principal); E11.9 Type 2 diabetes mellitus without complications; J33.8 Other polyp of sinus; J34.3 Hypertrophy of nasal turbinates; G47.30 Sleep apnea, unspecified; J45.909 Unspecified asthma, uncomplicated; Z88.1 Allergy status to other antibiotic agents; Z88.2 Allergy status to sulfonamides; Z87.891 Personal history of nicotine dependence
CPT/HCPCS: 31259; 31267; 31276; 61782; 00160; 36415; 80048; 82962; 83036; 85027; 88305; 93005; 94640; J2405